=== PATIENT | female | born 1980 | race Caucasian/White ===

== ENCOUNTER 2016-12-30 08:00 | Emergency (ER) | payer BC ==
[~2016-12-30] VITALS: Ht 165.1 cm; Wt 50.0 kg
[~2016-12-30 08:00] MED LIST: CARAFATE1 GM PO; DICYCLOMINE HCL20 MG PO; EFFEXOR XR75 MG PO; NOHOMEMEDS; PANTOPRAZOLE SO40 MG PO; PROMETHAZINE HC25 M1 PO; VENLAFAXINE H37.5 M3 PO; ZANTAC150 MG PO; ZOFRAN4 MG PO
[2016-12-30 08:39] LABS: EOSINOPHIL (%) 0.3 % (0-5); HEMATOCRIT 40.7 % (36.0-46.0); IMMATURE GRANULOCYTE (%) 0.7 % (0.0-0.7); IMMATURE GRANULOCYTE COUNT 0.1 K/uL; INSTRUMENT ABS NEUTROPHIL CT 5.4 K/uL; MCH 30.3 PG (29.0-34.0); MCHC 33.4 G/DL (30.0-36.0); MCV 90.6 FL (83-99); MEAN PLAT.VOLUME 11.3 uM^3 (9.5-12.4); MONOCYTE (%) 8.5 % (3-12); MONOCYTE COUNT 0.6 K/uL (0-0.8); NEUTROPHIL (%) 75.4 % (45-76); NEUTROPHIL COUNT 5.4 K/uL (1.8-6.4); PLATELET COUNT 185 K/uL (156-360); RBC DIS.WIDTH-CV 12.4 % (11.8-14.6); RED BLOOD COUNT 4.49 M/uL (3.80-5.20); WHITE BLOOD COUNT 7.1 K/uL (4.1-10.2)
[2016-12-30 08:49] LABS: SODIUM 139 mEq/L (136-147)
[2016-12-30 08:51] LABS: GLUCOSE 101 mg/dL (70-99)
[2016-12-30 08:52] LABS: ANION GAP 11 MEQ/L (2-14)
[2016-12-30 08:53] LABS: TOTAL BILIRUBIN 0.5 mg/dL (0.0-1.0)
[2016-12-30 08:54] LABS: ALKALINE PHOSPHATASE 42 IU/L (3-129)
[2016-12-30 08:55] LABS: GFR ESTIMATE (CALCULATED) > 59 mL/min/
[2016-12-30 08:56] LABS: UREA NITROGEN (BUN) 10 mg/dL (9-23)
[2016-12-30 08:58] LABS: LIPASE 7 U/L (1.0-51.0)
[2016-12-30 09:04] LABS: QUANTITATIVE HCG < 4.0 MIU/ML
[2016-12-30 09:14] LABS: CHLORIDE 107 mEq/L (99-109)
[2016-12-30 11:34] LABS: ADD MIUA? YES; BILIRUBIN NEGATIVE; BLOOD NEGATIVE; COLOR YELLOW ((YELLOW)); GLUCOSE (STRIP) NEGATIVE; KETONES 5; LEUKOCYTES NEGATIVE; NITRITE NEGATIVE; PROTEIN (STRIP) NEGATIVE; SPECIFIC GRAVITY 1.014 (1.000-1.030); UROBILINOGEN 0.2 MG/DL (0.2-1.0)
[2016-12-30 12:35] LABS: BACTERIA 2+ /HPF; EPITHELIAL CELLS 1+ /HPF; MUCUS 1+ /LPF; RED BLOOD CELLS 0-5 /HPF (0-5); UCUL ADDED? NO; WHITE BLOOD CELLS 0-5 /HPF (0-5)
[2016-12-30] MEDS ORDERED: BENTYL10 MG PO (14:51)
[2016-12-30] MEDS ORDERED: ZOFRAN ODT4 MG PO (14:51)
[2016-12-30] MEDS ORDERED: PERCOCET 5/31 TABLET PO (14:51)
[2016-12-30 15:04] VITALS: BP 112/72
== END 2016-12-30 15:22 | disposition home or self-care (01) ==
LOC: EME 08:00
PROVIDERS: Emergency Medicine
DX: N83.201 Unspecified ovarian cyst, right side (principal); N83.202 Unspecified ovarian cyst, left side; F41.9 Anxiety disorder, unspecified; F17.200 Nicotine dependence, unspecified, uncomplicated
CPT/HCPCS: 74177; 76856; 80053; 81003; 83690; 84702; 85025; 87086; 99281; 99285; J2270; J2405; J3010; J7030

== ENCOUNTER 2017-01-01 00:57 | Emergency (ER) | payer BC ==
[~2017-01-01] VITALS: Ht 165.1 cm; Wt 49.8 kg
[~2017-01-01 00:57] MED LIST changes: +BENTYL10 MG PO; +PERCOCET 5/31 TABLET PO; +ZOFRAN ODT4 MG PO
[2017-01-01 01:27] LABS: HEMATOCRIT 41.6 % (36.0-46.0); MCH 29.9 PG (29.0-34.0); MCHC 32.9 G/DL (30.0-36.0); MCV 90.8 FL (83-99); PLATELET COUNT 182 K/uL (156-360); RBC DIS.WIDTH-CV 12.1 % (11.8-14.6); RBC DIS.WIDTH-SD 40.3 % (39-53); RED BLOOD COUNT 4.58 M/uL (3.80-5.20); WHITE BLOOD COUNT 6.1 K/uL (4.1-10.2)
[2017-01-01 01:37] LABS: CHLORIDE 102 mEq/L (99-109); POTASSIUM 4.2 mEq/L (3.7-5.4); SODIUM 138 mEq/L (136-147)
[2017-01-01 01:39] LABS: GLUCOSE 123 mg/dL (70-99)
[2017-01-01 01:40] LABS: ANION GAP 9 MEQ/L (2-14)
[2017-01-01 01:41] LABS: TOTAL BILIRUBIN 0.6 mg/dL (0.0-1.0)
[2017-01-01 01:43] LABS: ALKALINE PHOSPHATASE 44 IU/L (3-129); GFR ESTIMATE (CALCULATED) > 59 mL/min/
[2017-01-01 01:44] LABS: UREA NITROGEN (BUN) 9 mg/dL (9-23)
[2017-01-01 01:53] LABS: QUANTITATIVE HCG < 4.0 MIU/ML
[2017-01-01 04:42] LABS: BILIRUBIN NEGATIVE; BLOOD NEGATIVE; COLOR YELLOW ((YELLOW)); GLUCOSE (STRIP) NEGATIVE; KETONES NEGATIVE; LEUKOCYTES NEGATIVE; NITRITE NEGATIVE; PROTEIN (STRIP) NEGATIVE; SPECIFIC GRAVITY 1.006 (1.000-1.030); UROBILINOGEN 0.2 MG/DL (0.2-1.0)
[2017-01-01 04:43] LABS: ADD MIUA? NO; UCUL ADDED? NO
[2017-01-01 04:49] LABS: LIPASE 13 U/L (1.0-51.0)
[2017-01-01] MEDS ORDERED: ZOFRAN ODT4 MG PO (06:00)
[2017-01-01] MEDS ORDERED: PERCOCET 5/31 TABLET PO (06:00)
[2017-01-01 06:16] VITALS: BP 119/65
== END 2017-01-01 06:18 | disposition home or self-care (01) ==
LOC: EME 00:57
DX: K52.9 Noninfective gastroenteritis and colitis, unspecified (principal); N83.202 Unspecified ovarian cyst, left side; N83.201 Unspecified ovarian cyst, right side; F17.200 Nicotine dependence, unspecified, uncomplicated
CPT/HCPCS: 74177; 80053; 81003; 83690; 84702; 85027; 99281; 99285; J2270; J2405; J7030